=== PATIENT | male | born 2005 | race Two or more races ===

== ENCOUNTER 2024-10-10 09:42 | Outpatient (REF) | payer MEDICAID, SELFPAY ==
[2024-10-10 14:12] LABS: MANUAL DIFF FLAG NO
[2024-10-10 14:24] LABS: Basophils Percent Auto 0.4 % (0-2); Eosinophils Absolute Auto 0.1 X10*3/uL (0.0-0.4); Eosinophils Percent Auto 1.5 % (0-4); Hematocrit 43.4 % (42.0-52.0); Hemoglobin 14.7 g/dl (14.0-18.0); Imm Gran Abs Auto 0.01 X10*3/uL (0.00-0.03); Imm Gran Pct Auto 0.2 % (0.0-0.4); Lymphocytes Absolute Auto 2.3 X10*3/uL (1.2-4.9); Lymphocytes Percent Auto 42.8 % (20-40); Mean Corpuscular HGB Conc 33.9 g/dl (31.0-36.0); Mean Corpuscular Hemoglobin 28.1 pg (27.0-33.0); Mean Corpuscular Volume 82.8 fL (80.0-98.0); Mean Platelet Volume 10.1 fL (9.4-12.4); Monocytes Absolute Auto 0.4 X10*3/uL (0.1-1.2); Monocytes Percent Auto 7.1 % (2-11); Neutrophils Absolute Auto 2.6 x10*3/uL (2.0-8.3); Platelet Count 255 X10*3/uL (160-400); Red Blood Count 5.24 X10*6/uL (4.60-5.80); Red Cell Distribution Width 12.5 % (11.0-16.0); White Blood Count 5.4 X10*3/uL (4.8-10.8)
[2024-10-10 14:41] LABS: Alanine Aminotransferase 33 U/L (0-40); Albumin Level 4.3 g/dL (3.5-5.0); Alkaline Phosphatase 45 U/L (39-117); Anion Gap 7 (12-20); Aspartate Amino Transferase 25 U/L (5-37); Bilirubin Total 0.4 mg/dL (0.0-1.0); Blood Urea Nitrogen 11 mg/dL (9-16); Calcium 9.3 mg/dL (8.4-10.2); Carbon Dioxide 27 mmol/L (22-29); Chloride 107 mmol/L (96-108); Cholesterol 189 mg/dL (<200); Estimated Glomerular Filt Rate > 60; Glucose Random 89 mg/dL (60-115); HDL Cholesterol 36 mg/dL (>40); LDL Cholesterol Calculated 124 mg/dL (<100); Potassium 4.1 mmol/L (3.3-5.1); Sodium 137 mmol/L (135-145); Total Protein 6.9 g/dL (6.5-8.0); Triglycerides 147 mg/dL (<150)
[2024-10-10 14:57] LABS: TSH reflex Free T4 1.65 uIU/mL (0.32-4.0)
[2024-10-11 03:56] LABS: HIV AB/AG Nonreactive (Nonreactive); HIV Num 1 0.06 S/CO (0.00-0.99); ~HepC Num1 0.07 S/CO (0.00-0.79); ~Hepatitis C Antibody Nonreactive (Nonreactive)
[2024-10-11 04:13] LABS: HCG Tumor Marker <5 mIU/mL (<5)
[2024-10-11 05:24] LABS: Sex Hormone Binding Globulin 35 nmol/L (10-50)
[2024-10-16 15:03] LABS: Testosterone, Free 78 pg/mL (35.0-155.0); Testosterone, Total 436 ng/dL (250-1100)
[2024-10-21 13:33] LABS: Prolactin Undiluted 9.9 ng/mL (2.0-18.0)
[2024-10-28 01:29] LABS: Estradiol Ultra Sensitive 33 pg/mL (< OR = 29)
== END 2024-10-10 09:43 | disposition home or self-care (01) ==
LOC: HO.CHCLDS 09:42
PROVIDERS: Visit Provider Internal Medicine
DX: Z00.00 Encounter for general adult medical examination without abnormal findings (principal); N62 Hypertrophy of breast
CPT/HCPCS: 36415; 80053; 80061; 82670; 84146; 84270; 84402; 84403; 84443; 84702; 85025; 86803; 87389

== ENCOUNTER 2024-11-01 11:00 | Outpatient (AMB) | payer MEDICAID, SELFPAY ==
--- NOTE | 2024-11-01 11:02 | A.OFFVIS_ITS ---
Vital Signs 11/01/24 11:08 Height 5 ft 9 in Weight 217 lb BMI 32.0 BP 117/61 Blood Pressure Location Lt brachial Position Sitting Pulse 66 Intake Visit Reasons: gynecomastia Intake Note: Patient is seen in office for evaluation of gynecomastia. Pt c/o: onset 2-3 yrs, would like to know if its normal, breast seem larger, denies pain, discharge, redness ref [facility] Headmaster/Mistress Required: No Accompanied by: Self / Same As Patient Allergies Penicillins Allergy (Unknown, Unverified 11/01/24 11:07) Unknown Medication List - Last Reconciled 11/01/24 by Bharathi Saunders MD No Known Home Meds HPI Comments Details: 19-year-old male patient presenting for evaluation of bilateral breast enlargement, possible gynecomastia. He 1st noticed this approximately 3 years ago. Recently he has been going to the gym and losing weight. He is uncertain if this is decreasing in size with the exercise. He denies any pain, redness or discharge. He underwent evaluation with prolactin and testosterone levels which were in the normal range. He denies any trauma to the chest or any new medications. He has not undergone any radiologic studies. [facility] Social History Alcohol intake: never Patient Tobacco Use Status: Current everyday Tobacco user Review of Systems Const All systems reviewed & are unremarkable except as noted in HPI and below Physical Exam Const General: healthy appearing Nutritional Appearance: well nourished Orientation/consciousness: patient oriented x3 Limitations: no limitations HEENT Head: Yes normocephalic and Yes atraumatic Ears: hearing grossly normal bilaterally Chest Other: Bilateral prominent breast with mainly fatty tissue below but no palpable hard mass to indicate underlying gynecomastia. No tenderness to palpation, no nipple discharge and no nipple retraction. No enlarged lymph nodes appreciated. Resp Effort & Inspection: normal respiratory effort GI Inspection: Yes normal to inspection Palpation (GI): Soft to palpation, nontender, no guarding and not rigid Male General Exam: No hernia Penis: normal penis and uncircumcised Testes: high-riding testicle on the left Skin General skin exam: no rashes or lesions noted Neuro General: patient oriented x3 Assessment & Plan Assessment & Plan (1) Gynecomastia, male: Code(s): N62 - Hypertrophy of breast Category: Medical Plan 19-year-old male patient presenting with bilateral breast enlargement which on examination appears mainly to be fatty tissue and does not have the consistency typical of gynecomastia. This can be surgically removed this may regress with time with continued observation. I discussed the risks and benefits of surgical excision and he wishes to hold off on any surgery at this time. She is welcome to return for re-evaluation if the swelling does not improve. Coding Level of Care Code New Pt Level 4 (89860) Diagnoses Gynecomastia, male N62
[2024-11-01 11:08] VITALS: BP 117/61; PULSE 66; BMI 32.0
--- OUTSIDE RECORDS SUMMARY | 2024-11-01 11:29 | XMS_ITS | Clinical Summary ---
Author Organization [employer] [facility] Address [address] [place] [address] Care Team Providers Care Cullet Trucker Name Role Phone Michael Morris MD Primary Care Prov ider Medications No known medications Active Problems Problem Noted Date Diagnosed Date Encounter for medical examination to establish c are 10/09/2024 Assessment & Plan (10/09/2024 2:54 PM EDT): Last pcp visit 2 years ago at [place] Hospitalization:- Er:- Pmhx: - Pshx: adenoids 2009 All: PNC Meds: - Gynecomastia 10/09/2024 Assessment & Plan (10/09/2024 8:24 PM EDT): No mases palpated, will order workup to evaluate for other related causes and will refer to surgery Encounters Date Type Department Care Team Description 10/09/2024 2:30 PM EDT Office Visit [facility] [address] [place] [address] Michael Morris MD Encounter for medical examination to establish care (Primary Dx); Gynecomastia 10/09/2024 Travel 09/30/2024 Patient Outreach [facility] [address] [place] [address] Michael Morris MD Pre-visit Planning (SDOH screening negative and Tobacco screening negative) 08/30/2024 Population Health Risk Score [facility] (C[facility]) Department [address] [place] [phone] Provider, Population Health Generic from Last 3 Months Family History Medical History Relation Name Comments No Known Problems Father Brain cancer Father's Brother No Known Problems Mother Relation Name Status Comments Father Father's Brother Mother Social History Tobacco Use Types Packs/Day Years Used Date Smoking Tobacco: Every Day Cigarettes 0.3 1.4 Started: 2023 Smokeless Tobacco: Never Tobacco Cessation:Ready to Q uit: Not Asked; Counseling Given: Not Answered Alcohol Use Standard Drinks/Week Comments Never 0 (1 standard drink = 0.6 oz pur e alcohol) Depression Answer Date Recorded Patient Health Questionnaire-9 Score 3 10/09/2024 Patient Health Questionnaire-9 Score 3 10/09/2024 Last PHQ-9: Questionnaire Data Not on file 0 10/09/2024 Housing Stability Answer Date Recorded What is your housing situation today? I have miriam meneses 09/30/[address] you li ve. Do you have problems with any of the following? None of the above 09/30/2024 Food Insecurity Answer Date Recorded Within the past 12 months, y ou worried that your food would run out before you got money to buy more: Never True 09/30/2024 Within the past 12 months,th e food you bought just didn't last and you didn't have enough money to get more: Never True Transportation Answer Date Recorded In the past 12 months, has l ack of transportation kept you from medical appts, meetings, work or from getting things needed for daily living? No 09/30/2024 Utilities Answer Date Recorded In the past 12 months, has t he electric, gas, oil or water company threatened to shut off services in your home? No 09/30/2024 Depression Answer Date Recorded Patient Health Questionnaire-2 Score 2 10/09/2024 Internet Access Answer Date Recorded Internet Access Q1 Yes 09/30/2024 Internet Access Q2 Not on file 09/30/2024 Sex and Gender Information Value Date Recorded Sex Assigned at Male 10/09/2024 2:24 PM EDT Legal Sex Male 1:47 PM EST Gender Identity Male 10/09/2024 2:24 PM EDT Sexual Orientation Straight 10/10/2024 11 :54 AM EDT Last Filed Vital Signs Vital Sign Reading Time Taken Comments Blood Pressure 124/70 10/09/2024 2:44 PM EDT Pulse 78 10/09/2024 2:44 PM EDT Temperature 36.8 ??C (98.2 ??F) 10/09/2024 2:44 PM ED T Respiratory Rate 20 10/09/2024 2:44 PM EDT Oxygen Saturation 98% 10/09/2024 2:44 PM EDT Inhaled Oxygen Concentration - - Weight 98.6 kg (217 lb 6.4 oz) 10/09/2024 2:44 P M EDT Height 180.3 cm (5' 11 ) 10/09/2024 2:44 PM EDT Body Mass Index 30.32 10/09/2024 2:44 PM EDT Plan of Treatment Upcoming Encounters Date Type Department Care Team (Late st Contact Info) Description 11/13/2024 3:15 PM EDT Telemedicine [facility] [address] [place], [place] [phone] Michael Morris MD [address] [place] [address] Health Maintenance Due Date Last Done Comments Chlamydia and Gonorrhea Screening 2003 Family Planning (PISQ) 10/21/2018 HPV Vaccines (1 - Male 3-dos e series) 10/21/2018 Meningococcal B Vaccine (1 o f 2 - Standard) 2019 DTaP/Tdap/Td Vaccines (1 - Tdap) 10/21/2022 Hepatitis B Vaccines (1 of 3 - 19+ 3-dose series) 10/21/2022 Pneumococcal Vaccine: Pediatrics (0 to 5 Years) and At-Risk Patients (6 to 49) Years) (1 of 2 - PCV) 10/21/2022 COVID-19 Vaccine ( - 2023-2 5 season) 2024 Influenza Vaccine (#1) 2024 SDOH Screening 09/30/2025 09/30/2024 Alcohol/Substance Use Screening 10/09/2025 10/09/2024 Depression Screening 10/09/2025 10/09/2024, 10/09/2024 Tobacco Screening 10/09/2025 10/09/2024 Lipid Panel 10/10/2029 10/10/2024 Zoster Vaccines (1 of 2) 10/21/2053 RSV Patients and Patients Aged 60 years or older (1 - 1-dose 75+ series) 10/21/2078 HIV Screening Completed 10/10/2024 Hepatitis C Screening Completed 10/10/2024 HIB Vaccines Aged Out No longer eligi ble based on patient's age to complete this topic Hepatitis A Vaccines Aged Out No long er eligible based on patient's age to complete this topic IPV Vaccines Aged Out No longer eligi ble based on patient's age to complete this topic Meningococcal Vaccine Aged Out No erin isiah eligible based on patient's age to complete this topic RSV under 20 months Aged Out No longe r eligible based on patient's age to complete this topic Rotavirus Vaccines Aged Out No longer eligible based on patient's age to complete this topic Procedures Procedure Name Priority Date/Time Associated Diagnosis Comments BETA-HCG, QUANTITATIVE (TUMOR MARKER) Routine 10/10/2024 9:48 AM EDT Gynecomastia SEX HORMONE BINDING GLOBULIN Routine 10/10/2024 9:48 AM EDT Gynecomastia ESTRADIOL Routine 10/10/2024 9:48 AM EDT Gynecomastia PROLACTIN, DILUTION STUDY Routine 10/10/2024 9:48 AM EDT Gynecomastia TESTOSTERONE, FREE (DIALYSIS) AND TOTAL,MS Routine 10/10/2024 9:48 AM EDT Encounter for medical examination to establish care HEPATITIS C AB W/REFL TO HCV RNA, QN, PCR Routine 10/10/2024 9:48 AM EDT Encounter for medical examination to establish care HIV 1/2 ANTIGEN/ANTIBODY, FOURTH GENERATION W/RFL Routine 10/10/2024 9:48 AM EDT Encounter for medical examination to establish care TSH W/REFLEX TO FT4 Routine 10/10/2024 9 :48 AM EDT Encounter for medical examination to establish care LIPID PANEL, STANDARD Routine 10/10/2024 9:48 AM EDT Encounter for medical examination to establish care COMPREHENSIVE METABOLIC PANEL Routine 10/10/2024 9:48 AM EDT Encounter for medical examination to establish care CBC WITH AUTO DIFFERENTIAL Routine 10/10/2024 9:48 AM EDT Encounter for medical examination to establish care from Last 3 Months Results * Prolactin, Dilution Study (10/10/2024 9:48 AM EDT) Prolactin, Undiluted 9.9 2.0 - 18.0 ng/mL [facility] Prolactin, Diluted SEE NOTE 2.0 - 18.0 ng/mL [facility] Comment:Result confirmed by 1:100 dilution. No high dosehook effect detected.Prolactin dilution studies are done to determine ifthere is a high-dose hook effect (i.e. a non-linearassay response due to a very high concentration ofProlactin). This is reported to occur at Prolactinconcentrations at or above 30,000 ng/mL.This test is not recommended for identifyingmacroprolactin. The [facility], Prolactin, Total and Monomeric is therecommended test (Order code [id number]).THIS TEST WAS PERFORMED AT:[email or web address] [address] [phone] PAYNE MD Blood Venous blood specimen / Unknown 10/10/2024 9:48 AM EDT 10/10/2024 2:06 PM EDT Michael Malone MD LAB BLOOD ORDERABL ES Final Result [facility] [address] [place] [phone] * TSH W/Reflex to FT4 (10/10/2024 9:48 AM EDT) TSH reflex Free T4 1.65 0.32 - 4.0 uIU/mL [facility] Blood Venous blood specimen / Unknown 10/10/2024 9:48 AM EDT 10/10/2024 2:06 PM EDT Michael Malone MD LAB BLOOD ORDERABL ES Final Result Performing Organization Address City/[facility]/ZIP Co de Phone Number [facility] [address] [place] [address] [phone] * Sex Hormone Binding Globulin (SHBG) (10/10/2024 9:48 AM EDT) Sex Hormone Binding Globulin 35 10 - 50 nmol/L [facility] Comment:THIS TEST WAS PERFOR MED AT:[employer] [place] [phone] PAYNE MD Blood Venous blood specimen / Unknown 10/10/2024 9:48 AM EDT 10/10/2024 2:06 PM EDT Michael Malone MD LAB BLOOD ORDERABL ES Final Result Performing Organization Address [facility] Co de Phone Number [facility] [address] [place] [phone] [phone] * (ABNORMAL) CBC auto differential (10/10/2024 9:48 AM EDT) White Blood Count 5.4 4.8 - 10.8 X10*3/uL [facility] Red Blood Count 5.24 4.60 - 5.80 X10*6/uL [facility] Hemoglobin 14.7 14.0 - 18.0 g/dl [facility] Hematocrit 43.4 42.0 - 52.0 % [facility] Mean Corpuscular Volume 82.8 80.0 - 98.0 fL [facility] Mean Corpuscular Hemoglobin 28.1 27.0 - 33.0 pg [facility] Mean Corpuscular HGB Conc 33.9 31.0 - 36.0 g/dl [facility] Red Cell Distribution Width 12.5 11.0 - 16.0 % [facility] Platelet Count 255 160 - 400 X10*3/uL [facility] Mean Platelet Volume 10.1 9.4 - 12.4 fL [facility] Neutrophils Percent Auto 48.0 45 - 73 % [facility] Imm Gran Pct Auto 0.2 0.0 - 0.4 % [facility] Lymphocytes Percent Auto 42.8(H) 20 - 40 % [facility] Monocytes Percent Auto 7.1 2 - 11 % [facility] Eosinophils Percent Auto 1.5 0 - 4 % [facility] Basophils Percent Auto 0.4 0 - 2 % [facility] NRBC Pct Auto 0.0 0.0 - 0.2 /100WBC [facility] Neutrophils Absolute Auto 2.6 2.0 - 8.3 x10*3/uL [facility] Imm Gran Abs Auto 0.01 0.00 - 0.03 X10*3/uL [facility] Lymphocytes Absolute Auto 2.3 1.2 - 4.9 X10*3/uL [facility] Monocytes Absolute Auto 0.4 0.1 - 1.2 X10*3/uL [facility] Eosinophils Absolute Auto 0.1 0.0 - 0.4 X10*3/uL [facility] Basophils Absolute Auto 0.0 0.0 - 0.2 X10*3/uL [facility] NRBC Abs Auto 0.000 0.0 - 0.012 X10*3/uL [facility] Blood Venous blood specimen / Unknown 10/10/2024 9:48 AM EDT 10/10/2024 2:08 PM EDT us Michael Malone MD LAB BLOOD ORDERABL ES Final Result [facility] [address] [place], [place] [phone] * Hepatitis C Antibody with Reflex to HCV, RNA, Quantitative, Real-Time PCR (10/10/2024 9:48 AM EDT) Hepatitis C Antibody Nonreactive Nonreactive [facility] Comment:Antibodies to HCV no t detected; does not exclude early acuteHCV infection. Blood Venous blood specimen / Unknown 10/10/2024 9:48 AM EDT 10/10/2024 2:06 PM EDT Michael Malone MD LAB BLOOD ORDERABL ES Final Result Performing Organization Address [facility] Co de Phone Number [facility] [address] [place] [phone] * Beta-hCG, Quantitative (Tumor Marker) (10/10/2024 9:48 AM EDT) [facility] HCG, Total, QN <5 <5 mIU/mL [facility] Comment:Values from differen t assay methods may vary.The use of this assay to monitor or to diagnosepatients with cancer or any condition unrelatedto has not been cleared or approved bythe FDA or the supervisor histology of the assay.THIS TEST WAS PERFORMED AT:[email or web address] [address] [phone] PAYNE MD Blood Venous blood specimen / Unknown 10/10/2024 9:48 AM EDT 10/10/2024 2:06 PM EDT Michael Malone MD LAB BLOOD ORDERABL ES Final Result Performing Organization Address [facility] Co de Phone Number [facility] [address] [place] [phone] * (ABNORMAL) Estradiol (10/10/2024 9:48 AM EDT) [facility] Estradiol Ultra Sensitive 33(A) < OR = 29 pg/mL [facility] Comment:This test was develo ped and its analytical performancecharacteristics have been determined by [employer].It has not been cleared or approved by the FDA. This assayhas been validated pursuant to the CLIA regulations and isused for clinical purposes.THIS TEST WAS PERFORMED AT:[email or web address] [email or web address] [place] [phone] FRANCES MD,PHD,QING Blood Venous blood specimen / Unknown 10/10/2024 9:48 AM EDT 10/10/2024 2:06 PM EDT Michael Malone MD LAB BLOOD ORDERABL ES Final Result Performing Organization Address [facility]/ZIP Co de Phone Number [facility] [address] [place] [phone] * HIV-1/2 Antigen and Antibodies, Fourth Generation, with Reflexes (10/10/2024 9:48 AM EDT) HIV AB/AG Nonreactive Nonreactive [facility] Comment:HIV-1 p24 Ag and/or HIV-1/HIV-2 Ab not detected.A test result that is nonreactive does not exclude thepossibility of exposure to or infection with HIV-1 and/orHIV-2. Nonreactive results in this assay for individualswith prior exposure to HIV-1 and/or HIV-2 may be due toantigen and antibody levels that are below the limit ofdetection of this assay.The [employer] HIV Ag/Ab Combo assay result andsupplemental assay results should be interpreted inconjunction with the patient's clinical presentation,history and other laboratory results. If the results areinconsistent with clinical evidence, additional testing issuggested to confirm the result. Blood Venous blood specimen / Unknown 10/10/2024 9:48 AM EDT 10/10/2024 2:06 PM EDT Michael Malone MD LAB BLOOD ORDERABL ES Final Result Performing Organization Address [facility]/ZIP Co de Phone Number [facility] [address] [place] [address] [phone] * Testosterone, Free (Dialysis) And Total, MS (10/10/2024 9:48 AM EDT) Testosterone, Total 436 250 - 1100 ng/dL [facility] Comment:For additional infor evelia, please refer tohttps://education.[employer]/faq/KBN216(This link is being provided for informational/educational purposes only.)(Note)This test was developed and its analytical performancecharacteristics have been determined by [employer]. It hasnot been cleared or approved by the FDA. This assay hasbeen validated pursuant to the CLIA regulations and isused for clinical purposes. Testosterone, Free 78 35.0 - 155.0 pg/mL [facility] Comment:(Note)This test was developed and its analytical performancecharacteristics have been determined by [employer]. It hasnot been cleared or approved by the FDA. This assay hasbeen validated pursuant to the CLIA regulations and isused for clinical purposes.MDed [address] [place] [address],[address] [phone] Yannick Guerra MD, PhDTHIS TEST WAS PERFORMED AT:[place] [address] [place] [phone] GUERRA MD,PHD Blood Venous blood specimen / Unknown 10/10/2024 9:48 AM EDT 10/10/2024 2:06 PM EDT Michael Malone MD LAB BLOOD ORDERABL ES Final Result [facility] [address] [place] [phone] * (ABNORMAL) Lipid Panel, Standard (10/10/2024 9:48 AM EDT) Triglycerides 147 <150 mg/dL [facility] Comment:Desirable Triglyceri de: less than 150 mg/dLBorderline High Triglyceride 150-199 mg/dLHigh Triglyceride: 200-499 mg/dLVery High Triglyceride: greater than or equal to 5OO mg/dL Cholesterol 189 <200 mg/dL [facility] Comment:Desirable Cholestero l: less than 200 mg/dLBorderline High Cholesterol: 200-239 mg/dLHigh Cholesterol: greater than 239 mg/dL LDL Cholesterol Calculated 124(H) <100 mg/dL [facility] Comment:Desirable LDL: less than 100 mg/dLNear Optimal/Above Optimal LDL: 110- 129 mg/dLBorderline High LDL: 130-159 mg/dLHigh LDL: 160-189 mg/dLVery High LDL: greater than or equal to 190 mg/dL HDL Cholesterol 36(L) >40 mg/dL [facility] Comment:Desirable HDL: great er than 40 mg/dL Note: This HDL assay may give artificially low results in patients with liver disease. Blood Venous blood specimen / Unknown 10/10/2024 9:48 AM EDT 10/10/2024 2:06 PM EDT us Michael Malone MD LAB BLOOD ORDERABL ES Final Result [facility] [address] [place] [phone] * (ABNORMAL) Comprehensive Metabolic Panel (10/10/2024 9:48 AM EDT) Sodium 137 135 - 145 mmol/L [facility] Potassium 4.1 3.3 - 5.1 mmol/L [facility] Chloride 107 96 - 108 mmol/L [facility] Carbon Dioxide 27 22 - 29 mmol/L [facility] Anion Gap 7(L) 12 - 20 [facility] Urea Nitrogen (BUN) 11 9 - 16 mg/dL [facility] Creatinine, Serum 0.60 0.5 - 1.4 mg/dL [facility] Estimated Glomerular Filt Rate >60 [facility] Comment:Chronic Kidney Disea se: Estimated GFR < 60 mL/min/1.46j9Nxyzld Kidney Disease: Estimated GFR < 15 mL/min/1.73m2 Glucose 89 60 - 115 mg/dL [facility] Calcium 9.3 8.4 - 10.2 mg/dL [facility] Bilirubin, Total 0.4 0.0 - 1.0 mg/dL [facility] Aspartate Amino Transferase 25 5 - 37 U/L [facility] Alanine Aminotransferase 33 0 - 40 U/L [facility] Total Protein 6.9 6.5 - 8.0 g/dL [facility] Albumin Level 4.3 3.5 - 5.0 g/dL [facility] Alkaline Phosphatase 45 39 - 117 U/L [facility] Blood Venous blood specimen / Unknown 10/10/2024 9:48 AM EDT 10/10/2024 2:06 PM EDT us Michael Malone MD LAB BLOOD ORDERABL ES Final Result [facility] [address] [place] [phone] from Last 3 Months Insurance [employer] Care Teams Cullet Trucker Relationship Specialty Start Date End Date Michael Morris MD [address] [place] [phone] PCP - General Internal Medicine 10/09/24
== END 2024-11-01 11:21 | disposition home or self-care (01) ==
LOC: HO.HGS 11:00
PROVIDERS: PCP Family Medicine; Visit Provider Surgery
DX: N62 Hypertrophy of breast (principal)
CPT/HCPCS: 99204

== ENCOUNTER → 2024-11-01 11:00 | Outpatient (BNVA) | payer MEDICAID, SELFPAY | PROVIDERS: PCP Family Medicine; Visit Provider Surgery | DX: N62 Hypertrophy of breast (principal) | CPT/HCPCS: 99202 ==

== ENCOUNTER 2024-11-14 09:45 | Outpatient (REF) | payer MEDICAID, SELFPAY ==
--- OUTSIDE RECORDS SUMMARY | 2024-11-14 10:04 | XMS_ITS | Encounter Summary ---
Author Organization [employer] Address [address] [place] [address] Care Team Providers Care Robotic Technician Name Role Phone Michael Morris MD Primary Care Prov ider Encounter Details Date Type Department Care Team (Late st Contact Info) Description 11/13/2024 3:15 PM EDT Telemedicine [facility] [address] [place], [place] [phone] Michael Morris MD [address] [place], [place] [phone] Gynecomastia (Primary Dx) Social History Tobacco Use Types Packs/Day Years Used Date Smoking Tobacco: Every Day Cigarettes 0.3 1.4 Started: 2023 Smokeless Tobacco: Never Alcohol Use Standard Drinks/Week Comments Never 0 [...] Orientation Straight 10/10/2024 11 :54 AM EDT documented as of this encounter Plan of Treatment Scheduled Orders Name Type Priority Associated Diagnoses Orde r Schedule LH Lab Routine Gynecomastia Expected: 11/13/2024 (Approximate), Expires: 11/13/2025 [facility] Lab Routine Gynecomastia Expected: 11/13/2024, Expires: 11/13/2025 Chlamydia/N. Gonorrhoeae RNA, TMA, Urogenitial Microbiology Routine Gynecomastia Ordered: 11/13/2024 Estradiol Lab Routine Gynecomastia Expected: 11/13/2024, Expires: 11/13/2025 documented as of this encounter Visit Diagnoses Diagnosis Gynecomastia- Primary Hypertrophy of breast documented in this encounter Additional Health Concerns Assessment Noted Time PHQ-9 Depression Total Score: 3 10/10/19 25 3:12 PM EDT documented as of this encounter Care Teams Robotic Technician Relationship Specialty Start Date End Date Michael Morris MD [address] [place] [phone] PCP - General Internal Medicine 10/09/24 documented as of this encounter
[2024-11-15 05:38] LABS: Follicle Stimulating Hormone 18.6 mIU/mL (1.4-12.8); Lutenizing Hormone 13.9 mIU/mL (1.5-9.3)
[2024-11-27 03:09] LABS: Estradiol Ultra Sensitive 56 pg/mL (< OR = 29)
== END 2024-11-14 09:46 | disposition home or self-care (01) ==
LOC: HO.CHCLDS 09:45
PROVIDERS: Visit Provider Internal Medicine
DX: N62 Hypertrophy of breast (principal)
CPT/HCPCS: 36415; 82670; 83001; 83002